=== PATIENT | female | born 1995 | race Caucasian/White ===

== ENCOUNTER 2024-01-25 00:02 | Inpatient (IN) | payer BC ==
[~2024-01-25 00:02] MED LIST: Terbutaline 1 MG/ML SDV SUBCUT PRN
[2024-01-25 00:23] LABS: HEMATOCRIT 34.3 % (37.0-47.0); HEMOGLOBIN 11.9 g/dL (12.0-16.0); MEAN CORPUSCULAR HEMOGLOBIN 29.6 pg (28.0-32.0); MEAN CORPUSCULAR HGB CONC 34.7 g/dL (32.0-36.0); MEAN CORPUSCULAR VOLUME 85.3 fL (83.0-99.0); MEAN PLATELET VOLUME 11.3 fL (9.4-12.3); PLATELET COUNT,PLT 260 K/uL (150-400); RED BLOOD CELL COUNT 4.02 M/uL (4.10-5.30); WHITE BLOOD CELL COUNT,WBC 13.93 K/uL (3.9-11.3)
[2024-01-25] MEDS: Ampicillin 2 GM in Sodium Chloride 0.9% 100 ML IV ONE (00:32)
[2024-01-25] MEDS: Lactated Ringers 1,000 ML IV SCH (00:36)
[2024-01-25] MEDS: Misoprostol 25 MCG (1/4 of 100 MCG) Tab PO ONE (00:54)
[2024-01-25] MEDS: Misoprostol 25 MCG (1/4 of 100 MCG) Tab VAG PRN ×2 (00:55→05:22)
[2024-01-25] MEDS: Ampicillin 1 GM Vial IV SCH (04:30)
[2024-01-25] MEDS: Ampicillin 1 GM in Sodium Chloride 0.9% 50 ML IV SCH (08:37)
[2024-01-25] MEDS ORDERED: ePHEDrine 50 MG/ML SDV IVPUSH PRN ×2 (09:33)
[2024-01-25] MEDS ORDERED: Phenylephrine HCl In 0.9% NaCl 1 MG/10 ML Syringe IVPUSH PRN (09:33)
[2024-01-25] MEDS ORDERED: Ropivacaine HCl/PF 200 ML ONE (09:34)
[2024-01-25] MEDS ORDERED: Bupivacaine 0.5% 10 ML SDV ONE (09:34)
[2024-01-25] MEDS: Ropivacaine HCl/PF 400 MG in Premix Bag 1 BAG EPIDUR SCH (10:15)
[2024-01-25] MEDS: Oxytocin/0.9 % Sodium Chloride 30 UNIT/500 ML BAG IV SCH (10:16)
[2024-01-25] MEDS: Ondansetron 4 MG/2 ML SDV IVPUSH PRN (11:24)
[2024-01-25] MEDS ORDERED: Witch Hazel Medicated Pads 40/Jar TOP PRN (18:05)
[2024-01-25] MEDS ORDERED: Ondansetron 4 MG/2 ML SDV IVPUSH PRN (18:05)
[2024-01-25] MEDS ORDERED: Acetaminophen 500 MG Tab PO PRN (18:05)
[2024-01-25] MEDS ORDERED: Misoprostol 200 MCG Tab PO PRN (18:05)
[2024-01-25] MEDS ORDERED: Simethicone 80 MG Tab.Chew PO PRN (18:05)
[2024-01-25] MEDS ORDERED: Ibuprofen 800 MG Tab PO PRN (18:05)
[2024-01-25] MEDS ORDERED: Benzocaine/Menthol 20%-0.5% Spray 78 GM Cannister TOP PRN (18:05)
[2024-01-25] MEDS ORDERED: Methylergonovine 0.2 MG/1 ML Amp IM PRN (18:05)
[2024-01-25] MEDS ORDERED: Carboprost Tromethamine 250 MCG/1 mL Vial IM PRN (18:05)
[2024-01-25] MEDS ORDERED: Tranexamic Acid IN NACL,ISO-OS 1,000 MG in Premix Bag 1 BAG IV PRN (18:05)
[2024-01-25] MEDS ORDERED: Lanolin 100% Cream 7 GM Tube TOP PRN (18:05)
[2024-01-25] MEDS: Sodium Chloride 0.9% 500 ML IV SCH (18:19)
[2024-01-25] MEDS: ePHEDrine 50 MG/ML SDV IM ONE (18:20)
[2024-01-26 06:11] LABS: BASOPHILS ABSOLUTE AUTO 0.04 K/uL (0.00-0.20); BASOPHILS PERCENT AUTO 0.3 % (0.0-1.0); EOSINOPHILS ABSOLUTE AUTO 0.11 K/uL (0.00-0.45); EOSINOPHILS PERCENT AUTO 0.8 % (0.0-6.0); HEMATOCRIT 30.4 % (37.0-47.0); HEMOGLOBIN 9.9 g/dL (12.0-16.0); IMMATURE GRAN PERCENT AUTO 0.7 % (0.0-0.4); LYMPHOCYTES ABSOLUTE AUTO 2.45 K/uL (1.00-4.80); LYMPHOCYTES PERCENT AUTO 16.9 % (24.0-44.0); MEAN CORPUSCULAR HEMOGLOBIN 29.4 pg (28.0-32.0); MEAN CORPUSCULAR HGB CONC 32.6 g/dL (32.0-36.0); MEAN CORPUSCULAR VOLUME 90.2 fL (83.0-99.0); MEAN PLATELET VOLUME 11.1 fL (9.4-12.3); MONOCYTES ABSOLUTE AUTO 1.25 K/uL (0.00-0.80); MONOCYTES PERCENT AUTO 8.6 % (0.0-8.0); NEUTROPHILS ABSOLUTE AUTO 10.54 K/uL (1.80-7.70); NEUTROPHILS PERCENT AUTO 72.7 % (41.0-71.0); PLATELET COUNT,PLT 212 K/uL (150-400); RED BLOOD CELL COUNT 3.37 M/uL (4.10-5.30); WHITE BLOOD CELL COUNT,WBC 14.49 K/uL (3.9-11.3)
[2024-01-26] MEDS: Docusate Sodium 100 MG Cap PO PRN (08:27)
== END 2024-01-26 18:27 | disposition home or self-care (01) | DRG 560 ==
LOC: MW.OB 00:02 → OBSVTOIN 16:07 → MW.OB 19:35
PROVIDERS: ADMIT Obstetrics & Gynecology; ATTEND Obstetrics & Gynecology
PROC: 10E0XZZ Delivery of Products of Conception, External Approach (ICD-10-PCS; principal; 2024-01-25)
PROC: 3E0R3BZ Introduction of Anesthetic Agent into Spinal Canal, Percutaneous Approach (ICD-10-PCS; 2024-01-25)
PROC: 00HU33Z Insertion of Infusion Device into Spinal Canal, Percutaneous Approach (ICD-10-PCS; 2024-01-25)
PROC: 3E033VJ Introduction of Other Hormone into Peripheral Vein, Percutaneous Approach (ICD-10-PCS; 2024-01-25)
DX: O99.824 Streptococcus B carrier state complicating childbirth (principal); Z37.0 Single live birth; Z3A.39 39 weeks gestation of pregnancy; O69.81X0 Labor and delivery complicated by cord around neck, without compression, not applicable or unspecified
CPT/HCPCS: 01967; 36415; 51702; 59025; 59409; 85025; 85027; 85460; 86592; 86850; 86900; 86901; A9270-GY; J0290; J0665; J2371; J2405; J2590; J2790; J2795; J3490; J7030; J7120